=== PATIENT | female | born 1945 | race Caucasian/White ===

== ENCOUNTER 2018-02-12 11:58 | Emergency (ER) | payer MEDICARE ==
--- NOTE | 2018-02-12 12:25 | Emergency Department Record ---
History of Present Illness - General Chief Complaint: Hypertension Stated Complaint: HIGH BLOOD PRESSURE Time Seen by Provider: 02/12/18 12:16 Source: Patient Mode of Arrival: Ambulatory Limitations: No limitations - History of Present Illness Initial Comments: The patient is here due to being told to go to the ER due to her BP being slightly elevated. She went for her first visit at PT here at [facility] and her BP was 170/100. The patient has had chronic L shoulder pain since December when she had rotator cuff surgery. She denies any CP, SOB, OMAIRA, sweating or nausea. She was told at PT to see her PCP and she did call there but due to her family doctor being on vacation she was told to go to the ER. Presently she is symptoms free with a normal blood pressure. Onset/Timin -: Hour(s) Timing: Unsure Improves With: Nothing Worsens With: Nothing Associated Symptoms: Other - Bunny Coma Scale Eye Response: (4) Open spontaneously Motor Response: (6) Obeys commands Verbal Response: (5) Oriented [place] Total: 15 - Related Data Allergies Allergy/AdvReac Type Severity Reaction Status Date / Time bee venom protein (honey bee) Allergy SWELLING Verified 02/12/18 12:17 (GENERAL) procaine Allergy SWELLING Verified 02/12/18 12:17 (GENERAL) Sulfa (Sulfonamide Allergy NAUSEA AND Verified 02/12/18 12:17 Antibiotics) VOMITING Travel Screening - Travel/Exposure Within Last 30 Days Have you traveled within the last 30 days?: No - Travel/Exposure Within Last Year Have you traveled outside the [place] in the last year?: No - Additonal Travel Details Have you been exposed to anyone with a communicable illness?: No - Travel Symptoms Symptom Screening: None Review of Systems Constitutional: Denies: Chills, Fever Eyes: Denies: Eye discharge ENT: Denies: Congestion Respiratory: Denies: Cough, Dyspnea Cardiovascular: Denies: Chest pain, Palpitations Endocrine: Denies: Fatigue Gastrointestinal: Denies: Abdominal pain Genitourinary: Denies: Dysuria Musculoskeletal: Denies: Back pain Past Medical History - SOCIAL HISTORY Smoking Status: Never smoker Alcohol Use: None Drug Use: None - RESPIRATORY Hx Respiratory Disorders: No - CARDIOVASCULAR Hx Cardio Disorders: Yes Hx Hypertension: Yes - NEURO Hx Neuro Disorders: No - GI Hx GI Disorders: No - Hx Genitourinary Disorders: No - ENDOCRINE Hx Endocrine Disorders: Yes Hx Diabetes: Yes (Type 2) - MUSCULOSKELETAL Hx Musculoskeletal Disorders: No - PSYCH Hx Psych Problems: No - HEMATOLOGY/ONCOLOGY Hx Hematology/Oncology Disorders: Yes Hx Cancer: Yes (breast) Hx Chemotherapy: No Hx Radiation Therapy: No Family Medical History Any Significant Family History?: No Physical Exam - General General Appearance: Alert, Oriented x3, Cooperative, No acute distress - Head Head exam: Atraumatic, Normocephalic, Normal inspection - Eye Eye exam: Normal appearance, PERRL - Neck Neck exam: Normal inspection, Full ROM. negative: Tenderness - Respiratory Respiratory exam: Normal lung sounds bilaterally. negative: Respiratory distress - Cardiovascular Cardiovascular Exam: Regular rate, Normal rhythm, Normal heart sounds. negative : Diastolic murmur, Systolic murmur - GI/Abdominal GI/Abdominal exam: Soft, Normal bowel sounds. negative: Tenderness - Extremities Extremities exam: Normal inspection. negative: Tenderness - Neurological Neurological exam: Alert, Normal gait. negative: Abnormal gait, Motor sensory deficit Course Vital Signs 02/12/18 12:01 Temperature 98.2 F Pulse Rate 87 Respiratory 16 Rate Blood Pressure 144/76 Pulse Ox 100 - Reevaluation(s) Reevaluation #1: The patient is doing very well at this time. She denies any new problems or issues. I explained to her that the EKG and labs are all basically WNL's and should not cause the patient any problems. Her BP here is normal so she is to see her PCP next week for recheck. 02/12/18 13:03 Medical Decision Making - Data Complexity MDM Data: Labs Ordered and/or Reviewed, EKG Ordered and/or Reviewed - Lab Data Result diagrams: 02/12/18 12:34 02/12/18 12:34 - EKG Data -: EKG Interpreted by Me EKG: No Acute Changes, Normal EKG Disposition Disposition: Discharge Clinical Impression: Hypertension Qualifiers: Hypertension type: unspecified Qualified Code(s): I10 - Essential (primary) hypertension Disposition: Home, Self-Care Condition: (2) Stable Instructions: Hypertension (ED) Additional Instructions: Please continue your regular medicines and see your family doctor for recheck next week. Forms: Patient Portal Access Time of Disposition: 13:04 Quality - Quality Measures Quality Measures: N/A - Blood Pressure Screening View Details: Yes Does Patient Have Any of the Following: Active Dx of HTN Blood Pressure Classification: Hypertensive Reading Systolic Measurement: 144 Diastolic Measurement: 76 Screening for High Blood Pressure: Patient Exclusion, Hx of HTN [[id number]]
[2018-02-12 12:39] LABS: BASO % 0.2 % (0-6); EOS % 2.1 % (0-6); HEMATOCRIT 40.7 % (35.0-47.0); LYMPH % 21.4 % (16-45); MEAN CELL VOLUME 92.1 fl (81-97); MEAN CORPUSCULAR HEMOGLOBIN 29.4 pg (27-33); MEAN CORPUSCULAR HGB CONC 31.9 g/dl (32-36); MEAN PLATELET VOLUME 10.3 fl (7.4-10.4); MONO % 6.3 % (0-9); PLATELET COUNT 347 K/uL (130-400); RED BLOOD COUNT 4.42 M/uL (3.80-5.40); RED CELL DISTRIBUTION WIDTH 13.3 % (11.5-14.5); WHITE BLOOD COUNT W/O DIFF 9.1 K/uL (4.2-12.2)
[2018-02-12 12:52] LABS: BLOOD UREA NITROGEN 20 mg/dL (8-23); CREATININE 0.9 mg/dL (0.5-0.9); EST GLOMERULAR FILTRATION RATE > 60 mL/min
[2018-02-12 12:53] LABS: TOTAL PROTEIN 7.5 g/dL (6.6-8.7)
[2018-02-12 12:55] LABS: GLUCOSE,RANDOM 156 mg/dL (74-109)
[2018-02-12 12:58] LABS: ALB/GLOB RATIO 1.3 (1.1-1.8); ALBUMIN 4.3 g/dL (4.0-5.0); ALKALINE PHOSPHATASE 85 U/L (35-104); ALT/SGPT 16 U/L (<33); AST/SGOT 15 U/L (10.0-35.0)
== END 2018-02-12 13:10 | disposition home or self-care (01) ==
LOC: ER 11:58
DX: I10 Essential (primary) hypertension (principal); E11.9 Type 2 diabetes mellitus without complications; Z79.84 Long term (current) use of oral hypoglycemic drugs
CPT/HCPCS: 80053; 85025; 99284

== ENCOUNTER 2018-08-20 12:15 | Day surgery (SDC) | payer MEDICARE ==
[2018-08-20] MEDS ORDERED: LIDOCAINE 2% MDV (20MG/ML) 20ML VIAL IV ONE (12:16)
[2018-08-20] MEDS ORDERED: PROPOFOL 10 MG/ML VIAL IV ONE (12:16)
--- NOTE | 2018-08-21 10:50 | Operative Note ---
DATE OF SURGERY: 08/20/2018 OPERATION: Screening COLONOSCOPY. PREOPERATIVE DIAGNOSIS: Colon cancer screening, average risk. POSTOPERATIVE DIAGNOSIS: Severe sigmoid diverticulosis, otherwise normal exam. PROCEDURE: After informed consent was obtained from the patient, she was placed in the left lateral decubitus position in the endoscopy suite, sedated and monitored by the department of anesthesia. Digital rectal examination was unremarkable. A well-lubricated [id number] colonoscope was inserted into the rectum and advanced to the cecum. The cecum and cecal bulb were unremarkable. Preparation quality was good. The cecum, ascending colon, transverse colon, descending colon, sigmoid colon, and rectum were carefully inspected. There were severe sigmoid diverticular changes noted but no polyps or mass lesions were seen. The rectum was unremarkable in forward and in J-turn views. The endoscope was straightened, the rectal ampulla deflated, and the endoscope was removed. RECOMMENDATIONS: The patient should follow a high-fiber diet and use a fiber supplement. I would not recommend a repeat exam given her age and average risk and negative findings. As always, thank you for allowing me to participate in the healthcare of your patients. CC: Kal Gonzalez MD [facility]
== END 2018-08-20 14:00 | disposition home or self-care (01) ==
LOC: HOP 12:15
PROVIDERS: ATTEND Internal Medicine Gastroenterology
DX: Z12.11 Encounter for screening for malignant neoplasm of colon (principal); K57.30 Diverticulosis of large intestine without perforation or abscess without bleeding; E11.9 Type 2 diabetes mellitus without complications; I10 Essential (primary) hypertension; E78.00 Pure hypercholesterolemia, unspecified
CPT/HCPCS: 00812; G0121